=== PATIENT | male | born 1960 | race Caucasian/White ===

== ENCOUNTER → 2020-09-26 | Outpatient (CLI) | payer BC ==
[~2020-09-26] MED LIST: ATOR40TA78 PO; CALC-451 PO; ESOM20CA PO; FOLI-17 PO; KRIL500C PO; METH2.5T PO; MULT-412 PO; PRED10TA PO; SILD25TA PO; TEST200V21 IM
== END | disposition home or self-care (01) ==
LOC: STAR 11:25
PROVIDERS: ATTEND Colon & Rectal Surgery
DX: Z01.818 Encounter for other preprocedural examination (principal); Z01.812 Encounter for preprocedural laboratory examination; Z01.89 Encounter for other specified special examinations; R79.1 Abnormal coagulation profile
CPT/HCPCS: 93005